=== PATIENT | female | born 2000 | race Caucasian/White ===

== ENCOUNTER 2019-11-23 15:23 | Emergency (ER) | payer MEDICAID ==
[~2019-11-23] VITALS: Ht 162.6 cm; Wt 100.2 kg
[2019-11-23 15:34] VITALS: Ht 162.6 cm; Wt 100.2 kg
[2019-11-23 16:56] LABS: microscopic required? NO
[2019-11-23 17:29] LABS: UA SPECIFIC GRAVITY 1.025 (1.005-1.035); urine erythrocyte NEGATIVE (NEGATIVE)
[2019-11-23 18:25] VITALS: BP 108/59
== END 2019-11-23 18:25 | disposition home or self-care (01) ==
LOC: ED 15:23
PROVIDERS: Emergency Medicine
DX: O21.2 Late vomiting of pregnancy (principal); Z3A.22 22 weeks gestation of pregnancy
CPT/HCPCS: J2765; Q0092; Q0162